=== PATIENT | male | born 1960 | race African-American/Black ===

== ENCOUNTER 2017-03-21 08:39 | Inpatient (IN) | payer OTHER ==
[2017-03-21 09:23] VITALS: BMI 26.4
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
[2017-03-21] MEDS ORDERED: LOPERAMIDE HCL 2 MG CAPSULE PO PRN (10:32)
[2017-03-21] MEDS ORDERED: hydrOXYzine PAMOATE 50 MG CAPSULE (FP) PO PRN (10:32)
[2017-03-21] MEDS ORDERED: IBUPROFEN 400 MG TABLET (FP) PO PRN (10:32)
[2017-03-21] MEDS ORDERED: guaiFENesin/D-METHORPHAN HB 10 ML UNIT-DOSE CUPS PO PRN (10:32)
[2017-03-21] MEDS ORDERED: chlordiazePOXIDE HCL 25 MG CAPSULE PO PRN (10:32)
[2017-03-21] MEDS ORDERED: P-EPHED 60MG/TRIPROLIDI 2.5MG TABLET PO PRN (10:32)
[2017-03-21] MEDS ORDERED: MAGNESIUM CITRATE 300 ML BOTTLE PO PRN (10:32)
[2017-03-21] MEDS ORDERED: NICOTINE POLACRILEX 2 MG GUM BUC PRN (10:32)
[2017-03-21] MEDS ORDERED: MAGNESIUM HYDROX 2400MG/30ML ORAL SUSPENSION 30 ML CUP PO PRN (10:32)
[2017-03-21] MEDS ORDERED: MAG HYDROX/AL HYDROX/SIMETH 30 ML UNIT-DOSE CUP PO PRN (10:32)
[2017-03-21] MEDS ORDERED: ACETAMINOPHEN 325 MG TABLET (FP) PO PRN (10:32)
[2017-03-21] MEDS ORDERED: MENTHOL/PHENOL 1 EACH UD MM PRN (10:32)
[2017-03-21] MEDS ORDERED: chlordiazePOXIDE HCL 25 MG CAPSULE PO ONE (13:00)
[2017-03-21] MEDS: chlordiazePOXIDE HCL 25 MG CAPSULE PO SCH ×2 (16:45→22:17)
--- NOTE | 2017-03-21 17:14 | EKG ---
Test Reason : Blood Pressure : / mmHG Vent. Rate : 088 BPM Atrial Rate : 088 BPM P-R Int : 156 ms QRS Dur : 084 ms QT Int : 364 ms P-R-T Axes : 056 077 028 degrees QTc Int : 440 ms NORMAL SINUS RHYTHM VOLTAGE CRITERIA FOR LEFT VENTRICULAR HYPERTROPHY ABNORMAL ECG NO PREVIOUS ECGS AVAILABLE Confirmed by GEN ELAM MD ([id number]) on 03/21/2017 5:14:22 PM Referred By: Confirmed By:GEN ELAM MD
[2017-03-21 19:28] LABS: URINE APPEARANCE CLEAR; URINE BILIRUBIN NEGATIVE (NEGATIVE); URINE BLOOD NEGATIVE (NEGATIVE); URINE COLOR LTYELLOW; URINE GLUCOSE (UA) NEGATIVE (NEGATIVE); URINE KETONE NEGATIVE (NEGATIVE); URINE LEUK ESTERASE NEGATIVE (NEGATIVE); URINE NITRITE NEGATIVE (NEGATIVE); URINE PROTEIN NEGATIVE (NEGATIVE); URINE UROBILINOGEN NEGATIVE mg/dL (0.2-1.0)
[2017-03-21] MEDS: THIAMINE HCL 100 MG TABLET (FP) PO SCH (22:17)
[2017-03-21 22:27] LABS: URINE LEUK ESTERASE Negative (NEGATIVE)
[2017-03-22] MEDS: chlordiazePOXIDE HCL 25 MG CAPSULE PO SCH ×4 (05:07→22:15)
[2017-03-22] MEDS: NICOTINE 14 MG/24 HOURS TOPICAL PATCH TD SCH (10:12)
[2017-03-22] MEDS: PRENATAL VITAMINS W/ FOLIC ACID TABLET (FP) PO SCH (10:12)
[2017-03-22 11:25] LABS: MCH 30.9 pg (25.7-33.7); MCHC 32.2 g/dl (32.0-35.9); MEAN CELL VOLUME 95.7 fl (80-96); MEAN PLT VOLUME 8.6 fl (7.5-11.1); PLATELET COUNT 212 K/MM3 (134-434); RDW 14.5 % (11.9-15.9); WHITE BLOOD COUNT 3.7 K/mm3 (4.0-10.0)
[2017-03-22 11:38] LABS: ALBUMIN 3.1 g/dl (3.4-5.0); ANION GAP 7 (8-16); BILIRUBIN,TOTAL 0.4 mg/dL (0.2-1.0); CALCIUM 8.1 mg/dL (8.5-10.1); CO2 26 mmol/L (21-32); CREATININE 1.1 mg/dL (0.7-1.3); GLUCOSE,RANDOM 86 mg/dL (74-106); SGOT/AST 36 U/L (15-37); SGPT/ALT 37 U/L (12-78); TOT PROT 6.5 g/dl (6.4-8.2)
[2017-03-22 11:39] LABS: ALK PHOS 88 U/L (45-117)
[2017-03-22 12:28] LABS: HIV 1 & 2 AB NEGATIVE; HIV 1 AGp24 NEGATIVE
--- NOTE | 2017-03-22 13:11 | PN ---
[facility] CIWA - CIWA Score Nausea/Vomitin Muscle Tremors: 4-Moderate,w/Arms Extend Anxiety: 3 Agitation: 3 Paroxysmal Sweats: 3 Orientation: 0-Oriented Tacttile Disturbances: 1-Very Mild Itch/Numbness Auditory Disturbances: 0-None Visual Disturbances: 0-None Headache: 0-None Present CIWA-Ar Total Score: 19 [facility] Progress Note (SOAP) Subjective: N/V (vomited once), interrupted sleep, sweating Objective: 03/22/17 13:09 Last Vital Signs Temp Pulse Resp BP Pulse Ox 98.2 F 88 18 103/68 03/22/17 09:12 03/22/17 09:12 03/22/17 09:12 03/22/17 09:12 Laboratory Tests 03/21/17 03/22/17 03/22/17 18:00 07:45 07:45 WBC 3.7 L RBC 3.63 L Hgb 11.2 L Hct 34.7 L MCV 95.7 MCH 30.9 MCHC 32.2 RDW 14.5 Plt Count 212 MPV 8.6 Sodium Potassium Chloride Carbon Dioxide Anion Gap BUN Creatinine Creat Clearance w eGFR Random Glucose Calcium Total Bilirubin AST ALT Alkaline Phosphatase Total Protein Albumin Urine Color Ltyellow Urine Appearance Clear Urine pH 8.0 Ur Specific [place] 1.010 Urine Protein Negative Urine Glucose (UA) Negative Urine Ketones Negative Urine Blood Negative Urine Nitrite Negative Urine Bilirubin Negative Urine Urobilinogen Negative Ur Leukocyte Esterase Negative RPR Titer HIV 1&2 Antibody Screen Negative HIV P24 Antigen Negative 03/22/17 03/22/17 07:45 07:45 WBC RBC Hgb Hct MCV MCH MCHC RDW Plt Count MPV Sodium 137 Potassium 4.2 Chloride 104 Carbon Dioxide 26 Anion Gap 7 L BUN 15 D Creatinine 1.1 Creat Clearance w eGFR > 60 Random Glucose 86 Calcium 8.1 L Total Bilirubin 0.4 D AST 36 D ALT 37 D Alkaline Phosphatase 88 Total Protein 6.5 Albumin 3.1 L Urine Color Urine Appearance Urine pH Ur Specific [place] Urine Protein Urine Glucose (UA) Urine Ketones Urine Blood Urine Nitrite Urine Bilirubin Urine Urobilinogen Ur Leukocyte Esterase RPR Titer Nonreactive HIV 1&2 Antibody Screen HIV P24 Antigen Labs noted: h/h 11.2/34.7 Assessment: 03/22/17 13:10 Withdrawal symptoms Noted with mild anemia Plan: Continue detox Encouraged to drink lots of water for hydration Anemia: encouraged green leafy vegetables, follow up with your PCP for further evaluation
[2017-03-22] MEDS: THIAMINE HCL 100 MG TABLET (FP) PO SCH (22:15)
[2017-03-23] MEDS: chlordiazePOXIDE HCL 25 MG CAPSULE PO SCH ×2 (05:55→10:12)
[2017-03-23] MEDS: PRENATAL VITAMINS W/ FOLIC ACID TABLET (FP) PO SCH (10:12)
[2017-03-23] MEDS: NICOTINE 14 MG/24 HOURS TOPICAL PATCH TD SCH (10:12)
--- NOTE | 2017-03-23 11:26 | PN ---
[facility] CIWA - CIWA Score Nausea/Vomitin-No Nausea/No Vomiting Muscle Tremors: 4-Moderate,w/Arms Extend Anxiety: 4-Mod. Anxious/Guarded Agitation: 4-Moderately Restless Paroxysmal Sweats: 1-Minimal Palms Moist Orientation: 0-Oriented Tacttile Disturbances: 3-Moderate Itch/Numb/Burn Auditory Disturbances: 0-None Visual Disturbances: 0-None Headache: 0-None Present CIWA-Ar Total Score: 16 S Progress Note (SOAP) Subjective: ANXIETY,SLIGHT TREMORS, SWEATS,FATIGUE. Objective: 03/23/17 11:25 Vital Signs Temperature 97.8 F 03/23/17 09:00 Pulse Rate 103 H 03/23/17 09:00 Respiratory Rate 20 03/23/17 09:00 Blood Pressure 120/83 03/23/17 09:00 O2 Sat by Pulse Oximetry (%) Laboratory Last Values WBC 3.7 K/mm3 (4.0-10.0) L 03/22/17 07:45 RBC 3.63 M/mm3 (4.00-5.60) L 03/22/17 07:45 Hgb 11.2 GM/dL (11.7-16.9) L 03/22/17 07:45 Hct 34.7 % (35.4-49) L 03/22/17 07:45 MCV 95.7 fl (80-96) 03/22/17 07:45 MCH 30.9 pg (25.7-33.7) 03/22/17 07:45 MCHC 32.2 g/dl (32.0-35.9) 03/22/17 07:45 RDW 14.5 % (11.9-15.9) 03/22/17 07:45 Plt Count 212 K/MM3 (134-434) 03/22/17 07:45 MPV 8.6 fl (7.5-11.1) 03/22/17 07:45 Sodium 137 mmol/L (136-145) 03/22/17 07:45 Potassium 4.2 mmol/L (3.5-5.1) 03/22/17 07:45 Chloride 104 mmol/L (98-107) 03/22/17 07:45 Carbon Dioxide 26 mmol/L (21-32) 03/22/17 07:45 Anion Gap 7 (8-16) L 03/22/17 07:45 BUN 15 mg/dL (7-18) D 03/22/17 07:45 Creatinine 1.1 mg/dL (0.7-1.3) 03/22/17 07:45 Creat Clearance w eGFR > 60 (>60) 03/22/17 07:45 Random Glucose 86 mg/dL (74-106) 03/22/17 07:45 Calcium 8.1 mg/dL (8.5-10.1) L 03/22/17 07:45 Total Bilirubin 0.4 mg/dL (0.2-1.0) D 03/22/17 07:45 AST 36 U/L (15-37) D 03/22/17 07:45 ALT 37 U/L (12-78) D 03/22/17 07:45 Alkaline Phosphatase 88 U/L (45-117) 03/22/17 07:45 Total Protein 6.5 g/dl (6.4-8.2) 03/22/17 07:45 Albumin 3.1 g/dl (3.4-5.0) L 03/22/17 07:45 Urine Color Ltyellow 03/21/17 18:00 Urine Appearance Clear 03/21/17 18:00 Urine pH 8.0 (5.0-8.0) 03/21/17 18:00 Ur Specific [place] 1.010 (1.001-1.035) 03/21/17 18:00 Urine Protein Negative (NEGATIVE) 03/21/17 18:00 Urine Glucose (UA) Negative (NEGATIVE) 03/21/17 18:00 Urine Ketones Negative (NEGATIVE) 03/21/17 18:00 Urine Blood Negative (NEGATIVE) 03/21/17 18:00 Urine Nitrite Negative (NEGATIVE) 03/21/17 18:00 Urine Bilirubin Negative (NEGATIVE) 03/21/17 18:00 Urine Urobilinogen Negative mg/dL (0.2-1.0) 03/21/17 18:00 Ur Leukocyte Esterase Negative (NEGATIVE) 03/21/17 18:00 RPR Titer Nonreactive (NONREACTIVE) 03/22/17 07:45 HIV 1&2 Antibody Screen Negative 03/22/17 07:45 HIV P24 Antigen Negative 03/22/17 07:45 Assessment: 03/23/17 11:25 WITHDRAWAL SX Plan: CONTINUE DETOX
[2017-03-23] MEDS: chlordiazePOXIDE 5 MG CAPSULE PO SCH ×2 (16:57→22:19)
[2017-03-23] MEDS: THIAMINE HCL 100 MG TABLET (FP) PO SCH (22:19)
[2017-03-24] MEDS: chlordiazePOXIDE 5 MG CAPSULE PO SCH (05:38)
[2017-03-24 09:10] VITALS: BP 115/76; PULSE 83; TEMP 97.7
--- NOTE | 2017-03-24 10:06 | PN ---
[facility] Progress Note (SOAP) Subjective: ANXIETY,SWEATS,FATIGUE. Objective: 03/24/17 10:05 Vital Signs Temperature 97.7 F 03/24/17 09:09 Pulse Rate 83 03/24/17 09:09 Respiratory Rate 20 03/24/17 09:09 Blood Pressure 115/76 03/24/17 09:09 O2 Sat by Pulse Oximetry (%) Laboratory Last Values WBC 3.7 K/mm3 (4.0-10.0) L 03/22/17 07:45 RBC 3.63 M/mm3 (4.00-5.60) L 03/22/17 07:45 Hgb 11.2 GM/dL (11.7-16.9) L 03/22/17 07:45 Hct 34.7 % (35.4-49) L 03/22/17 07:45 MCV 95.7 fl (80-96) 03/22/17 07:45 MCH 30.9 pg (25.7-33.7) 03/22/17 07:45 MCHC 32.2 g/dl (32.0-35.9) 03/22/17 07:45 RDW 14.5 % (11.9-15.9) 03/22/17 07:45 Plt Count 212 K/MM3 (134-434) 03/22/17 07:45 MPV 8.6 fl (7.5-11.1) 03/22/17 07:45 Sodium 137 mmol/L (136-145) 03/22/17 07:45 Potassium 4.2 mmol/L (3.5-5.1) 03/22/17 07:45 Chloride 104 mmol/L (98-107) 03/22/17 07:45 Carbon Dioxide 26 mmol/L (21-32) 03/22/17 07:45 Anion Gap 7 (8-16) L 03/22/17 07:45 BUN 15 mg/dL (7-18) D 03/22/17 07:45 Creatinine 1.1 mg/dL (0.7-1.3) 03/22/17 07:45 Creat Clearance w eGFR > 60 (>60) 03/22/17 07:45 Random Glucose 86 mg/dL (74-106) 03/22/17 07:45 Calcium 8.1 mg/dL (8.5-10.1) L 03/22/17 07:45 Total Bilirubin 0.4 mg/dL (0.2-1.0) D 03/22/17 07:45 AST 36 U/L (15-37) D 03/22/17 07:45 ALT 37 U/L (12-78) D 03/22/17 07:45 Alkaline Phosphatase 88 U/L (45-117) 03/22/17 07:45 Total Protein 6.5 g/dl (6.4-8.2) 03/22/17 07:45 Albumin 3.1 g/dl (3.4-5.0) L 03/22/17 07:45 Urine Color Ltyellow 03/21/17 18:00 Urine Appearance Clear 03/21/17 18:00 Urine pH 8.0 (5.0-8.0) 03/21/17 18:00 Ur Specific [place] 1.010 (1.001-1.035) 03/21/17 18:00 Urine Protein Negative (NEGATIVE) 03/21/17 18:00 Urine Glucose (UA) Negative (NEGATIVE) 03/21/17 18:00 Urine Ketones Negative (NEGATIVE) 03/21/17 18:00 Urine Blood Negative (NEGATIVE) 03/21/17 18:00 Urine Nitrite Negative (NEGATIVE) 03/21/17 18:00 Urine Bilirubin Negative (NEGATIVE) 03/21/17 18:00 Urine Urobilinogen Negative mg/dL (0.2-1.0) 03/21/17 18:00 Ur Leukocyte Esterase Negative (NEGATIVE) 03/21/17 18:00 RPR Titer Nonreactive (NONREACTIVE) 03/22/17 07:45 HIV 1&2 Antibody Screen Negative 03/22/17 07:45 HIV P24 Antigen Negative 03/22/17 07:45 Assessment: 03/24/17 10:05 WITHDRAWAL SX Plan: CONTINUE DETOX
--- NOTE | 2017-03-24 10:12 | DS ---
[facility] Detox Discharge Summary Admission Date: 03/21/17 Discharge Date: 03/24/17 - History Present History: Alcohol Dependence - Physical Exam Results Vital Signs: Vital Signs Temperature 97.7 F 03/24/17 09:09 Pulse Rate 83 03/24/17 09:09 Respiratory Rate 20 03/24/17 09:09 Blood Pressure 115/76 03/24/17 09:09 O2 Sat by Pulse Oximetry (%) - Treatment Hospital Course: Discharged Condition Good - Medication Discharge Medications: Ambulatory Orders NK [No Known Home Medication] 03/21/17 - Diagnosis (1) Alcohol dependence with withdrawal, uncomplicated Current Visit: Yes Status: Acute (2) Cocaine dependence, uncomplicated Current Visit: Yes Status: Acute (3) Nicotine dependence Current Visit: Yes Status: Acute Qualifiers: Nicotine product type: cigarettes Substance use status: in withdrawal Qualified Code(s): F17.213 - Nicotine dependence, cigarettes, with withdrawal - AMA Did Patient Leave Against Medical Advice: No (D/C'D DUE TO DISRUPTION/VERBAL AGRESSION OF THE UNIT.)
[2017-03-24] MEDS: PRENATAL VITAMINS W/ FOLIC ACID TABLET (FP) PO SCH (10:36)
[2017-03-24] MEDS: NICOTINE 14 MG/24 HOURS TOPICAL PATCH TD SCH (10:36)
[2017-03-24] MEDS ORDERED: chlordiazePOXIDE HCL 10 MG CAPSULE PO SCH (17:00)
== END 2017-03-24 10:33 | disposition home or self-care (01) | DRG 774 ==
LOC: YASAS 08:39 → Y3N 10:44
PROVIDERS: ADMIT Internal Medicine; ATTEND Internal Medicine
PROC: HZ2ZZZZ Detoxification Services for Substance Abuse Treatment (ICD-10-PCS; principal; 2017-03-21)
DX: F10.230 Alcohol dependence with withdrawal, uncomplicated (principal); F14.20 Cocaine dependence, uncomplicated; F17.213 Nicotine dependence, cigarettes, with withdrawal; D64.9 Anemia, unspecified; R76.11 Nonspecific reaction to tuberculin skin test without active tuberculosis
CPT/HCPCS: 36415; 71020-TC; 80053; 81003; 85027; 86593; 87389; 93005; 93010